=== PATIENT | female | born 1970 | race Caucasian/White ===

== ENCOUNTER 2016-04-17 21:42 | Emergency (ER) | payer SELFPAY ==
[2014-03-18 01:45] VITALS: BMI 32.5
[~2016-04-17 21:42] MED LIST: ADDERALL 20 MG20 M1 PO; ARMOUR THYROID120 MG PO; FLAGYL500 MG PO; GABAPENTIN100 MG PO; GLUCOPHAGE500 MG PO; HYDROCHLOROTHIA25 MG PO; HYDROCODONE-APA1 TAB PO; LATUDA40 MG PO; LEVAQUIN500 MG PO; PERCOCET 10/3251 TA1; SYNTHROID125 MCG PO; VITAMIN D5000 UNIT PO; XANAX1 MG PO
== END 2016-04-18 00:35 | disposition home or self-care (01) ==
LOC: D.ER 21:42
DX: S09.90XA Unspecified injury of head, initial encounter (principal); W16.212A Fall in (into) filled bathtub causing other injury, initial encounter; Y93.E1 Activity, personal bathing and showering; Y92.012 Bathroom of single-family (private) house as the place of occurrence of the external cause; M54.5 Low back pain; M25.512 Pain in left shoulder; M54.2 Cervicalgia; M25.552 Pain in left hip; M25.551 Pain in right hip; F41.9 Anxiety disorder, unspecified